=== PATIENT | male | born 1950 | race Caucasian/White ===

== ENCOUNTER → 2016-08-17 | Outpatient (CLI) | payer MEDICARE, BC ==
[~2016-08-17] MED LIST: AMOXICILLIN 50500 MG PO; HYDROCODONE BIT1 TA3 PO; LAMISIL250 MG; MELOXICAM15 MG PO; MULTI VITAMINS1 TAB; PANTOPRAZOLE40 MG PO; SIMVASTATIN40 MG PO; VITAMIN D1000 IU PO; [UNRECOGNIZED DRUG - REMARK] PO
== END ==
LOC: COL.RAD 08:16
DX: C82.18 Follicular lymphoma grade II, lymph nodes of multiple sites (principal); N40.0 Benign prostatic hyperplasia without lower urinary tract symptoms
CPT/HCPCS: Q9967

== ENCOUNTER → 2016-12-08 | Outpatient (CLI) | payer MEDICARE, BC | LOC: MHCPAIN 15:15 | DX: G89.29 Other chronic pain (principal); M47.27 Other spondylosis with radiculopathy, lumbosacral region; M53.3 Sacrococcygeal disorders, not elsewhere classified; M96.1 Postlaminectomy syndrome, not elsewhere classified; F17.210 Nicotine dependence, cigarettes, uncomplicated | CPT/HCPCS: G0463 ==

== ENCOUNTER → 2016-12-30 | Outpatient (CLI) | payer MEDICARE, BC | LOC: MHCPAIN 08:24 | DX: M47.27 Other spondylosis with radiculopathy, lumbosacral region (principal); M96.1 Postlaminectomy syndrome, not elsewhere classified; Z98.1 Arthrodesis status | CPT/HCPCS: J1100; Q9967 ==

== ENCOUNTER → 2017-01-12 | Outpatient (CLI) | payer MEDICARE, BC | LOC: MHCPAIN 09:57 | DX: G89.29 Other chronic pain (principal); M47.27 Other spondylosis with radiculopathy, lumbosacral region; M53.3 Sacrococcygeal disorders, not elsewhere classified; M96.1 Postlaminectomy syndrome, not elsewhere classified; F17.210 Nicotine dependence, cigarettes, uncomplicated | CPT/HCPCS: G0463 ==

== ENCOUNTER → 2017-01-20 | Outpatient (CLI) | payer MEDICARE, BC | LOC: MHCPAIN 11:14 | DX: M47.27 Other spondylosis with radiculopathy, lumbosacral region (principal); M96.1 Postlaminectomy syndrome, not elsewhere classified; M99.83 Other biomechanical lesions of lumbar region; Z98.1 Arthrodesis status | CPT/HCPCS: J1100; Q9967 ==

== ENCOUNTER → 2017-02-01 | Outpatient (CLI) | payer MEDICARE, BC | LOC: COL.RAD 08:08 | DX: R59.9 Enlarged lymph nodes, unspecified (principal); Z90.49 Acquired absence of other specified parts of digestive tract | CPT/HCPCS: Q9967 ==

== ENCOUNTER 2017-06-07 12:00 | Outpatient (CLI) | payer MEDICARE, BC ==
[~2017-06-07] VITALS: Ht 182.9 cm; Wt 110.3 kg
[2017-06-07] VITALS (7 sets, daily range): BP systolic 134–147; BP diastolic 72–86; PULSE 66–85
[~2017-06-07 12:00] MED LIST changes: +LYRICA 75MG CAP75 MG PO; -MELOXICAM15 MG PO; +MOBIC15 MG PO; -MULTI VITAMINS1 TAB; +MULTI VITAMINS1 TAB PO; -PANTOPRAZOLE40 MG PO; +PROTONIX 40MG T40 MG PO; +ZESTRIL40 MG PO; +ZOCOR 80MG80 MG PO
== END 2017-06-07 14:30 | disposition home or self-care (01) ==
LOC: COL.RAD 12:00
DX: M47.26 Other spondylosis with radiculopathy, lumbar region (principal); M48.04 Spinal stenosis, thoracic region; M48.061 Spinal stenosis, lumbar region without neurogenic claudication; M48.062 Spinal stenosis, lumbar region with neurogenic claudication; M21.371 Foot drop, right foot
CPT/HCPCS: Q9965